=== PATIENT | male | born 1990 | race African-American/Black ===

== ENCOUNTER 2019-10-11 17:47 | Emergency (ER) | payer MEDICAID ==
[~2019-10-11] VITALS: Ht 180.3 cm; Wt 91.0 kg
[2019-10-11 19:35] VITALS: BP 144/93
[2019-10-11 20:01] LABS: BASOPHILS % 0.3 % (0.0-2.0); HEMATOCRIT. 47.9 % (42.0-52.0); HEMOGLOBIN. 16.7 g/dL (14.0-18.0); LYMPHOCYTES % 12.4 % (20.0-50.0); MEAN CORPUSCULAR HEMOGLOBIN 34.3 pg (28.0-32.0); MEAN CORPUSCULAR VOLUME 98.4 fL (80.0-94.0); MEAN PLATELET VOLUME 8.3 fl (7.4-10.4); MONOCYTES % 7.3 % (2.0-8.0); PLATELET 193 x1000/uL (130-400); RED BLOOD CELL COUNT 4.87 mill/uL (4.7-6.1); RED CELL DISTRIBUTION WIDTH 14.4 % (11.6-14.6)
[2019-10-11 20:06] LABS: CHLORIDE 107 mEq/L (98-107)
[2019-10-11 20:10] LABS: ETHANOL BLOOD 298 mg/dL
[2019-10-11 20:14] LABS: CREATINE KINASE 383 IU/L (39-308)
== END 2019-10-11 21:36 | disposition left against medical advice (07) ==
LOC: ER 17:47 → CANBEDREQ 22:03
DX: R73.9 Hyperglycemia, unspecified (principal); R41.82 Altered mental status, unspecified; I49.9 Cardiac arrhythmia, unspecified
CPT/HCPCS: 36415; 80053; 80307; 80320; 80329; 82140; 82550; 82962; 83605; 83880; 84443; 84484; 85025; 93005; 99285; G0480